=== PATIENT | female | born 1980 | race Caucasian/White ===

== ENCOUNTER → 2024-02-11 10:11 | Outpatient (REF) | payer OTHER, SELFPAY ==
[2024-02-13 17:24] LABS: Quantiferon Mitogen minus NIL 9.99 IU/mL; Quantiferon NIL 0.01 IU/mL; Quantiferon Plus TB2 minus NIL 0.01 IU/mL (<=0.34); Quantiferon TB Gold Plus Negative (Negative)
== END ==
LOC: OHS 10:11
PROVIDERS: ATTENDING PHYSICIAN Nurse Practitioner
DX: Z23 Encounter for immunization (principal)
CPT/HCPCS: 36415; 86480